=== PATIENT | male | born 1955 ===

== ENCOUNTER 2021-03-31 09:03 | Inpatient (IN) | payer OTHER ==
[~2021-03-31] VITALS: Ht 160 cm; Wt 71.0 kg
--- NOTE | 2021-03-31 09:23 | NUR ---
PT TO ROOM VIA WHEELCHAIR, ACCOMPANIED BY 2 SECURITY.
[2021-03-31 10:00] LABS: HEMATOCRIT 46.7 % (39.0-50.0); HEMOGLOBIN 15.7 g/dl (14.0-18.0); IMMATURE GRANULOCYTES 0.4 % (0.0-5.0); MEAN CELL VOLUME 94.2 fL CALC (80.0-100.0); MEAN CORPUSCULAR HGB 31.7 pG CALC (26.0-32.0); MEAN CORPUSCULAR HGB CONC 33.6 g/dL CAL (32.0-36.0); NEUT# 16.55 thou/uL (1.82-7.42); RED BLOOD COUNT 4.96 mill/uL (4.70-6.10); RED CELL DISTRI WIDTH 12.8 % (11.5-15.5)
--- NOTE | 2021-03-31 10:03 | NUR ---
PT'S VSS, PT REPORTS PAIN AT 7/10 IN THE EPIGASTRIC AREA. PT CONTINUES TO BE NAUSEATED WITH INTERMITTENT DRY HEAVES, ONLY PRODUCING WHITE FROTHY SPUTUM WITH EMESIS. PT DENIES TAKING MEDICATIONS TODAY OR ANY FOOD/LIQUID INTAKE. PT STABLE WITH GUARDS AT THE BEDSIDE. AWARE OF EMESIS.
[2021-03-31 10:20] LABS: ALBUMIN 4.9 g/dL (3.2-5.0); BILIRUBIN, TOTAL 0.8 mg/dL (0.0-1.4); POTASSIUM 4.9 mmol/l (3.5-5.1); TOTAL PROTEIN 8.6 g/dL (6.3-8.2)
[2021-03-31] MEDS ORDERED: SUPER CALCIUM600 MG PO (10:39)
[2021-03-31] MEDS ORDERED: FAMOTIDINE20 M1 PO (10:39)
[2021-03-31] MEDS ORDERED: NORVASC5 M1 PO (10:40)
[2021-03-31] MEDS ORDERED: ATENOLOL25 MG PO (10:40)
[2021-03-31] MEDS ORDERED: HYDROCHLOROT12.5 M1 PO (10:41)
[2021-03-31] MEDS ORDERED: LISINOPRIL10 MG PO (10:41)
[2021-03-31] MEDS ORDERED: HEARTBURN RELIE10 MG (10:42)
[2021-03-31] MEDS ORDERED: LORATADINE10 M1 PO (10:42)
[2021-03-31] MEDS ORDERED: PRAVASTATIN SOD20 MG PO (10:42)
--- NOTE | 2021-03-31 11:42 | NUR ---
PT RETURNS FROM RADIOLOGY IN STABLE CONDITION. LAB IN TO COLLECT SECOND SET OF BLOOD CULTURES.
--- NOTE | 2021-03-31 12:04 | NUR ---
PT WITH IV FLUIDS INFUSING. PT NOTED TO BE BURPING QUITE A BIT AND STATES BURPING IS HELPING PAIN. PT RECVD MEDICATION FOR PAIN. PT WITH NO FURTHER EMESIS AT THIS TIME. PT EDUCATED ON NEED FOR URINE SAMPLE, URINAL WITHIN REACH. PT VERBALIZED UNDERSTANDING. PT STABLE WITH GUARDS AT THE BEDSIDE.
--- NOTE | 2021-03-31 12:15 | NUR ---
PT AMBULATORY TO BATHROOM TO PROVIDE URINE SAMPLE.
--- NOTE | 2021-03-31 13:25 | NUR ---
REPORT GIVEN TO ALBERTO, SURGERY RN. DILAUDID NOT GIVEN PER SURGERY INSTRUCTIONS. PT ABLE TO AMBULATE TO SURGERY STRETCHER. PT TAKEN BY STRETCHER FROM ED. PT ACCOMPANIED BY GUARDS. PT IN STABLE CONDITION AT TIME OF ADMISSION.
--- NOTE | 2021-03-31 17:02 | NUR ---
report received from Valencia Herman RN
--- NOTE | 2021-03-31 17:11 | NUR ---
male pt received from OR accompanied by Valencia Herman and chad x2 in stable condition; pt able to transfer self to bed; admission assessment completed at this time; pt alert and oriented; admits to dull pain rating 2/10; deny need for pain meds; no n/v noted per health technical writer; resp even and unlabored; lungs clear; skin color wnl; o2 per nc at 3L; hr reg; strong pulses; no edema noted; sr on monitor; bilat scds placed; abd soft with bs hypoactive; no bm noted per health technical writer; no flatus noted; ng tube patent to right nare with coffee ground gastric content noted; iverson to gravity draining clear yellow urine; #20 patent to rw with ivf infusing without complication; no redness or edema noted at site; lap surgical sites x5 present to abd with daria cdi; pt provided IS, education provided; pt able to vinnie use and pull 1000ml max; IS encouraged q1 hr x 10 reps; call light within reach; will continue to monitor
[2021-03-31 17:45] VITALS: BP 132/76
--- NOTE | 2021-03-31 18:08 | NUR ---
resting in bed with eyes closed; no apparent distress noted; o2 per nc; sr on monitor; iverson to gravity; ng tue to lcs; guards x2 at bedside; ice chips provided; call light within reach
--- NOTE | 2021-03-31 18:14 | NUR ---
Dr Burgess called per conventional mortgage underwriter; clarification for meds received
[2021-03-31 18:15] VITALS: BP 139/79
--- NOTE | 2021-03-31 18:25 | NUR ---
[facility] called per underwriter mortgage loan in regards to insulin order; protocol to be faxed
[2021-03-31 18:30] VITALS: BP 134/78
--- NOTE | 2021-03-31 18:55 | NUR ---
SAMMY RECEIVED FROM JACKLYN LIU
[2021-03-31 20:23] VITALS: BP 147/79
--- NOTE | 2021-03-31 20:34 | NUR ---
ASSESSMENT COMPLETE. PATIENT LYING QUIETLY IN BED. ALERT AND ORIENTED, VSS. ABDOMEN TENDER TO TOUCH 5 LAPROSCOPIC INCISIONS INTACT WITH CLEAN DRESSING. MALDONADO TO GRAVITY. NGT PATENT WITH COFFEE GROUND EMESIS. PATIENT C/O PAIN 3 ON SCALE 0-10. 2 GUARDS AT BEDSIDE. PATIENT STABLE, NO DISTRESS NOTED. CALL LIGHT WITHIN REACH.
--- NOTE | 2021-03-31 22:04 | NUR ---
PATIENT AWAKE IN BED WATCHING TELEVISION. VERBALIZES PAIN IS BETTER AFTER MEDICATION. NGT TO LOW CONTINUOUS SUCTION, 100ML OF COFFEE BROWN EMESIS NOTED.
[2021-03-31 22:37] VITALS: BP 123/69
[2021-04-01] VITALS (17 sets, daily range): BP systolic 95–133; BP diastolic 59–73
--- NOTE | 2021-04-01 00:50 | NUR ---
PATIENT AWAKE, WATCHING TV. ICE CHIPS OFFERED, TOLERATED WELL. DENIES PAIN AT THIS TIME. CALL LIGHT WITHIN REACH. GUARDS AT BEDSIDE.
--- NOTE | 2021-04-01 04:39 | NUR ---
RESTING QUIETLY EYES CLOSED.
[2021-04-01 05:31] LABS: HEMATOCRIT 41.9 % (39.0-50.0); IMMATURE GRANULOCYTES 0.2 % (0.0-5.0); MEAN CELL VOLUME 99.1 fL CALC (80.0-100.0); MEAN CORPUSCULAR HGB 31.7 pG CALC (26.0-32.0); NEUT# 8.92 thou/uL (1.82-7.42); RED BLOOD COUNT 4.23 mill/uL (4.70-6.10)
[2021-04-01 05:33] LABS: URINE BILIRUBIN - DIPSTICK NEGATIVE (NEGATIVE); URINE BLOOD DIPSTICK SMALL (NEGATIVE); URINE COLOR YELLOW; URINE GLUCOSE - DIPSTICK 500 mg/dL (NEGATIVE); URINE KETONE NEGATIVE (NEGATIVE); URINE PROTEIN - DIPSTICK NEGATIVE (NEG-TRACE); URINE SPECIFIC GRAVITY 1.025; URINE UROBILINOGEN - DIPSTICK 0.2 E.U./dL (0.2)
[2021-04-01 05:42] LABS: HEMOGLOBIN 13.4 g/dl (14.0-18.0)
[2021-04-01 06:12] LABS: URINE NITRITE - DIPSTICK NEGATIVE (Negative)
[2021-04-01 06:13] LABS: URINE EPITHELIAL CELLS FEW EPI/hpf (0-FEW); URINE LEUK ESTERASE NEGATIVE (NEGATIVE)
[2021-04-01 06:15] LABS: URINE BACTERIA FEW hpf
[2021-04-01 06:18] LABS: CREATININE 2.4 mg/dL (0.7-1.3)
[2021-04-01 06:21] LABS: POTASSIUM 5.2 mmol/l (3.5-5.1)
--- NOTE | 2021-04-01 09:19 | NUR ---
DR EVERETT IN ROUNDING ON PT.
--- NOTE | 2021-04-01 10:20 | NUR ---
NG TUBE REMOVED PT TOLERATED WELL.
--- NOTE | 2021-04-01 12:30 | NUR ---
ACCUCHEK 135 NO COVERAGE PER EMAR.
--- NOTE | 2021-04-01 14:22 | NUR ---
RESTING IN BED NO S/S OF DISTRESS NOTED.
--- NOTE | 2021-04-01 16:30 | NUR ---
RESTING IN BED.
--- NOTE | 2021-04-01 18:00 | NUR ---
AWAKE IN BED WATCHING TV.
--- NOTE | 2021-04-01 19:00 | NUR ---
REPORT RECEIVED FROM Gian PATEL RN, CARE OF PT ASSUMED AT THIS TIME.
--- NOTE | 2021-04-01 20:23 | NUR ---
POINT OF CARE GLUCOSE 109mg/dl.
[2021-04-02] VITALS (18 sets, daily range): BP systolic 99–159; BP diastolic 61–84
[2021-04-02 05:43] LABS: HEMATOCRIT 37.3 % (39.0-50.0); HEMOGLOBIN 11.8 g/dl (14.0-18.0); IMMATURE GRANULOCYTES 0.4 % (0.0-5.0); MEAN CELL VOLUME 98.9 fL CALC (80.0-100.0); MEAN CORPUSCULAR HGB 31.3 pG CALC (26.0-32.0); MEAN CORPUSCULAR HGB CONC 31.6 g/dL CAL (32.0-36.0); NEUT# 5.93 thou/uL (1.82-7.42); RED BLOOD COUNT 3.77 mill/uL (4.70-6.10)
[2021-04-02 06:02] LABS: CREATININE 2.1 mg/dL (0.7-1.3); POTASSIUM 4.5 mmol/l (3.5-5.1)
--- NOTE | 2021-04-02 07:41 | NUR ---
UP TO RECLINER WITH STANDBY ASSIST. DR HA IN ROUNDING ON PT.
--- NOTE | 2021-04-02 08:20 | NUR ---
PRELIM BLOOD CX SHOWS GRAM+COCCI IN 1 OF [address] CALLAHAN[address] WILL FOLLOW UP WITH FINAL RESULTS.
--- NOTE | 2021-04-02 10:00 | NUR ---
UP IN RECLINER.
--- NOTE | 2021-04-02 12:35 | NUR ---
HAVING LUNCH FULL LIQUID TOLERATING WELL.
--- NOTE | 2021-04-02 14:20 | NUR ---
FREQ ROUNDS MADE TO INSURE PT SAFETY.
--- NOTE | 2021-04-02 15:00 | NUR ---
RESTING IN RECLINER NO S/S OF DISTRESS NOTED.
--- NOTE | 2021-04-02 17:28 | NUR ---
ASSISTED BACK TO BED 1 PERSON ASSIST. PRN DILAUDID GIVEN FOR ABD PAIN.
--- NOTE | 2021-04-02 17:38 | NUR ---
RESTING IN RECLINER NO S/S OF DISTRESS NOTED.
--- NOTE | 2021-04-02 19:00 | NUR ---
REPORT RECEIVED FROM Gian PATEL RN, CARE OF PT ASSUMED AT THIS TIME.
--- NOTE | 2021-04-02 20:16 | NUR ---
POINT OF CARE GLUCOSE 171 mg/DL REPORTED BY Eva JOHNA
[2021-04-03] VITALS (18 sets, daily range): BP systolic 115–157; BP diastolic 71–88
[2021-04-03 05:51] LABS: HEMATOCRIT 34.9 % (39.0-50.0); HEMOGLOBIN 11.1 g/dl (14.0-18.0); MEAN CELL VOLUME 98.6 fL CALC (80.0-100.0); MEAN CORPUSCULAR HGB 31.4 pG CALC (26.0-32.0); MEAN CORPUSCULAR HGB CONC 31.8 g/dL CAL (32.0-36.0); RED BLOOD COUNT 3.54 mill/uL (4.70-6.10); RED CELL DISTRI WIDTH 12.3 % (11.5-15.5)
[2021-04-03 05:59] LABS: CREATININE 1.8 mg/dL (0.7-1.3); MAGNESIUM 1.4 mg/dL (1.6-2.3); POTASSIUM 4.5 mmol/l (3.5-5.1)
--- NOTE | 2021-04-03 07:10 | NUR ---
RECIEVED REPORT FROM OFF GOING NURSE. PT UP TO RECLINER WITH STANDBY ASSIST.
--- NOTE | 2021-04-03 07:54 | NUR ---
Patient is screened for PT intervention and would benefit from consult if medical agrees
--- NOTE | 2021-04-03 08:47 | NUR ---
DR SERRANO IN ROUNDING ON PT.
--- NOTE | 2021-04-03 10:00 | NUR ---
NO C/O PAIN VOICED. UP IN RECLINER.
--- NOTE | 2021-04-03 11:45 | NUR ---
NO INSULIN GIVEN PER SLIDING SCALE.
--- NOTE | 2021-04-03 13:40 | NUR ---
DR HA IN [facility] ON PT.
--- NOTE | 2021-04-03 15:35 | NUR ---
RESTING IN RECLINER. NO S/S OF DISTRESS NOTED.
--- NOTE | 2021-04-03 17:42 | NUR ---
RESTING IN RECLINER.
--- NOTE | 2021-04-03 19:00 | NUR ---
REPORT RECEIVED FROM Gian PATEL RN, CARE OF PT ASSUMED AT THIS TIME.
--- NOTE | 2021-04-03 20:02 | NUR ---
POINT OF CARE GLUCOSE 195mg/dl REPORTED BY Paty MURPHY CNA.
--- NOTE | 2021-04-03 20:19 | NUR ---
TELEPHONE REPORT GIVEN TO Gian CHAPMAN RN
--- NOTE | 2021-04-03 20:23 | NUR ---
REPORT RECEIVED FROM Marbella SHANNON RN
--- NOTE | 2021-04-03 21:30 | NUR ---
PATIENT ARRIVE TO FLOOR ACCOMPANIED BY Marbella ESCALERA RN, Peri MURPHY RN AND GUARDS X2. PT TRANSPORTED IN A WHEELCHAIR.
--- NOTE | 2021-04-04 | NUR ---
GUARDS X2 SWITCHING AT THIS TIME
[2021-04-04 04:00] VITALS: BP 128/79
--- NOTE | 2021-04-04 07:03 | NUR ---
PATIENT ASKING FOR A WARM CUP OF COFFEE BECAUSE HE IS BEOCMING STIFF. LET PT KNOW THE EMERGENCY DEPARTMENT AIDE WOULD BE I SHORTLY WITH HIS COFFEE. GUARDS X2 AT BEDSIDE.
[2021-04-04 07:30] VITALS: BP 128/74
--- NOTE | 2021-04-04 07:30 | NUR ---
PATEIENT RESTING IN BED AT THIS TIME. SIDERAILS ARE UP X 3 AND PATIENT HIS SHACKLED TO BED BY LOWER ANKLES AND WITHOUT ANY LOSS OF BLOOD FLOW. 2 GUARDS ARE AT BEDSIDE AT THIS TIME. PATINET DENINES ANY PAIN. ABD. WALL SURGICAL SITES ARE DRY AND INTACT. PATIENT HAS MALDONADO PLACE AND DRAINING CLEAR YELLOW URINE PATIENT GIVEN EDUCATION ON MALDONADO REMOVAL AND MALDONADO REMOVED AT THIS TIME AND 600ML OF URINE DRAINED FROM MALDONADO BAG. PATIENT INSTRUCTED TO CALL OUT TO NURSE WHEN HE FIRST URINATES AFTER MALDONADO REMOVAL. WILL CONTINUE TO MONITOR.
[2021-04-04 08:50] VITALS: BP 128/74
[2021-04-04 08:56] LABS: ALBUMIN 2.7 g/dL (3.2-5.0); BILIRUBIN, TOTAL 0.6 mg/dL (0.0-1.4); CREATININE 1.6 mg/dL (0.7-1.3); POTASSIUM 4.5 mmol/l (3.5-5.1); TOTAL PROTEIN 5.3 g/dL (6.3-8.2)
--- NOTE | 2021-04-04 09:30 | NUR ---
PAITENT UP TO BATHROOM AND HAD MOD. AMT. OF SOFT BROWN BM. PATIENT ASLO VOIDED 350ML OF URINE AT THIS TIME. PATINET ALSO TOLERATED SOFT DIET AT THIS TIME.
--- NOTE | 2021-04-04 11:21 | NUR ---
PATIENT RECEIVED 1UNIT OF HUMALOG FOR ACCU CHECK OF 188.
[2021-04-04] MEDS ORDERED: PERCOCET 5/325M1 TAB PO (11:26)
[2021-04-04] MEDS ORDERED: PROTONIX40 M2 PO (11:29)
--- NOTE | 2021-04-04 12:00 | NUR ---
PATIENT D/C AT THIS TIME. PATIENT VERBALIZES UNDERSTANDING OF D/C AT THIS TIME. IV REMOVED TIP INTACT.
--- NOTE | 2021-04-04 12:55 | NUR ---
PATIENT D/C AT THIS TIME. THIS NURSE TRIED TO CALL MEDICAL DEPT. AT [facility] AND THERE WAS NO ANSWER ON THE PHONE AT THIS TIME. D/C PACKET GIVEN TO CORRECTIONAL OFFICERS TO HAD TO MEDICAL AND LET THEM KNOW I TRIED TO CALL OUT TO FACILITY AND THERE WAS NO ANSWER. OFFICER STATED THEY WOULD LET THEM KNOW TO CALL IF THEY NEED ANY THING ANSWERED. PATIENT VERBALIZED UNDERSTANDING OF D/C INSTRUCTIONS WELL.
== END 2021-04-04 13:55 | DRG 327 ==
LOC: ED 09:03 → ORM 12:36 → ICU 16:22 → MS2 04-03 21:32
PROVIDERS: Emergency Medicine; Internal Medicine; Nurse Practitioner; ADMIT Surgery; ATTEND Surgery
PROC: 0BQT4ZZ Repair Diaphragm, Percutaneous Endoscopic Approach (ICD-10-PCS; principal; 2021-03-31)
PROC: 0DS64ZZ Reposition Stomach, Percutaneous Endoscopic Approach (ICD-10-PCS; 2021-03-31)
DX: K44.0 Diaphragmatic hernia with obstruction, without gangrene (principal); N17.9 Acute kidney failure, unspecified; K31.89 Other diseases of stomach and duodenum; I12.9 Hypertensive chronic kidney disease with stage 1 through stage 4 chronic kidney disease, or unspecified chronic kidney disease; E11.22 Type 2 diabetes mellitus with diabetic chronic kidney disease; N18.9 Chronic kidney disease, unspecified; I95.81 Postprocedural hypotension; E78.5 Hyperlipidemia, unspecified; K21.9 Gastro-esophageal reflux disease without esophagitis; E87.8 Other disorders of electrolyte and fluid balance, not elsewhere classified; Z20.822 Contact with and (suspected) exposure to COVID-19
CPT/HCPCS: J0131; J1100; J1650; J3475; S0164